=== PATIENT | female | born 1985 | race Caucasian/White ===

== ENCOUNTER → 2019-03-25 | Outpatient (CLI) | payer BC ==
--- NOTE | 2019-03-25 12:13 | MM ---
Reason for exam: screening (asymptomatic). Baseline mammogram. History: Family history of breast cancer in maternal grandmother and breast cancer in mother at age 37. Physical Findings: Nurse did not find any significant physical abnormalities on exam. MG 3D Screening Mammo W/Cad Bilateral CC and MLO view(s) were taken. The breast tissue is extremely dense which could obscure a lesion on mammography. No suspicious abnormality. Medial asymmetry at posterior depth on left 3D appears as fibroglandular tissue. ASSESSMENT: Negative, BI-RAD 1 RECOMMENDATION: Routine screening mammogram of both breasts in 1 year.
== END | disposition home or self-care (01) ==
LOC: RADMAMWWP 06:48 → MERGE 07:00
PROVIDERS: ATTEND Obstetrics & Gynecology
DX: Z12.31 Encounter for screening mammogram for malignant neoplasm of breast (principal); Z80.3 Family history of malignant neoplasm of breast
CPT/HCPCS: 77063; 77067

== ENCOUNTER 2019-12-16 12:29 | Outpatient (CLI) | payer BC ==
[2019-12-16 13:48] VITALS: BP 129/85; PULSE 93; RESP 16; TEMP 97.9
--- NOTE | 2020-01-08 12:37 | P.MSEPDOC ---
Presenting Problems - Arrival Data Date of Arrival on Unit: 12/16/19 Time of Arrival on Unit: 12:29 Mode of Transport: Ambulatory - Complaint OB-Reason for Admission/Chief Complaint: Possible Onset of Labor Comment: Matt since Medical History - Information : 3 Para: 2 Term: 1 : 1 Abortions: Spontaneous or Elective: 0 Number of Living Children: 2 - Gestational Age Gestational Age by BARRY (wks/days): 38 Weeks and 1 Days Review of Systems - Review of Systems Constitutional: No problems Breast: No problems ENT: No problems Cardiovascular: No problems Respiratory: No problems Gastrointestinal: No problems Genitourinary: No problems Musculoskeletal: No problems Neurological: No problems Skin: No problems Vital Signs - Temperature Temperature: 97.9 F Temperature Source: Temporal Artery Scan - Pulse Right Sitting Brachial Pulse Rate: 93 Pulse Assessment Method: Automatic Cuff - Respirations Respiratory Rate: 16 Oxygen Delivery Method: Room Air O2 Sat by Pulse Oximetry: 100 - Blood Pressure Right Arm Sitting Blood Pressure: 129/85 Blood Pressure Mean: 99 Blood Pressure Source: Automatic Cuff Medical Screen Scoring (Pre) - Cervical Exam Dilation: 1-3 cm = 1 Effacement: More than 50% = 2 Membranes: Intact - Uterine Contractions Frequency: > 5 minutes apart = 1 Duration: > 40 seconds = 2 Intensity: N/A - Maternal Vital Signs Maternal Temperature: N/A Maternal Blood Pressure: N/A Signs of Preeclampsia: N/A Maternal Respirations: N/A - Maternal Trauma Maternal Trauma: N/A - Assessment - Baby A Baseline FHR: 130 Heart Rate - NICHD Category: Category II (Indeterminate) = 3 Position: N/A Station: N/A - Total Score - Baby A Total Score - Baby A: 9 - Total Score - Baby B Total Score - Baby B: 6 - Total Score - Baby C Total Score - Baby C: 6 - Level of Risk - Baby A Level of Risk - Baby A: Medium (6-9) - Level of Risk - Baby B Level of Risk - Baby B: Medium (6-9) - Level of Risk - Baby C Level of Risk - Baby C: Medium (6-9) Physician Notification (Pre) - Physician Notified Physician Notified Date: 12/16/19 Physician Notified Time: 13:40 New Order Received: Yes - Notification Comment Comment: Juwan newton\Dr. Yi, , 38 06/21, contractions since 1030a, q3-5min, SVE 1.5/70/-2, no change since last exam in office and after 1 hr in triage, reactive NST, hx of fast delivery. Pt requesting d/c home after 1 hr in triage, lives 15 min from hosp. Orders rec'd to d/c pt from triage, to attempt latent labor interventions and return with increase in discomfort. Disposition - Disposition OB Disposition: Discharge to home, Written follow up instructions reviewed Discharge Date: 12/16/19 Discharge Time: 13:48 I agree with the RN Medical Screening Exam: Yes Risk & Benefit of care provided described in d/c instruction: Yes Diagnosis: FALSE LABOR AT OR AFTER 37 COMPLETED WEEKS OF GESTATION
== END 2019-12-16 13:48 | disposition home or self-care (01) ==
LOC: FBPOP 12:29
PROVIDERS: ATTEND Obstetrics & Gynecology Obstetrics
DX: O47.1 False labor at or after 37 completed weeks of gestation (principal); Z3A.38 38 weeks gestation of pregnancy
CPT/HCPCS: 59025; 99213

== ENCOUNTER 2019-12-20 07:45 | Outpatient (CLI) | payer BC ==
[2019-12-20 09:57] VITALS: BP 102/66; PULSE 98; RESP 16; TEMP 97.2
--- NOTE | 2020-01-11 07:59 | P.MSEPDOC ---
Presenting Problems - Arrival Data Date of Arrival on Unit: 12/20/19 Time of Arrival on Unit: 07:47 Mode of Transport: Ambulatory - Complaint OB-Reason for Admission/Chief Complaint: Possible Onset of Labor Comment: contractions starting this morning at 0445, Medical History - Information : 3 Para: 2 Term: 1 : 1 Abortions: Spontaneous or Elective: 0 Number of Living Children: 2 - Gestational Age Gestational Age by BARRY (wks/days): 38 Weeks and 5 Days Review of Systems - Review of Systems Constitutional: No problems Breast: No problems ENT: No problems Cardiovascular: No problems Respiratory: No problems Gastrointestinal: No problems Genitourinary: No problems Musculoskeletal: No problems Neurological: No problems Skin: No problems Vital Signs - Temperature Temperature: 97.2 F - Pulse Pulse Oximetery Pulse Rate: 98 Pulse Assessment Method: Pulse Oximetry - Respirations Respiratory Rate: 16 Oxygen Delivery Method: Room Air - Blood Pressure Right Arm Blood Pressure: 102/66 Blood Pressure Mean: 78 Blood Pressure Source: Automatic Cuff Medical Screen Scoring (Pre) - Cervical Exam Dilation: 1-3 cm = 1 Effacement: More than 50% = 2 Membranes: Intact - Uterine Contractions Frequency: > 5 minutes apart = 1 Duration: N/A Intensity: N/A - Maternal Vital Signs Maternal Temperature: N/A Maternal Blood Pressure: N/A Signs of Preeclampsia: N/A Maternal Respirations: N/A - Maternal Trauma Maternal Trauma: N/A - Assessment - Baby A Baseline FHR: 135 Heart Rate - NICHD Category: Category I (Normal) = 0 - Total Score - Baby A Total Score - Baby A: 4 - Total Score - Baby B Total Score - Baby B: 4 - Total Score - Baby C Total Score - Baby C: 4 - Level of Risk - Baby A Level of Risk - Baby A: Low (0-5) - Level of Risk - Baby B Level of Risk - Baby B: Low (0-5) - Level of Risk - Baby C Level of Risk - Baby C: Low (0-5) Physician Notification (Pre) - Physician Notified Physician Notified Date: 12/20/19 Physician Notified Time: 09:25 New Order Received: Yes - Notification Comment Comment: reported pt visit to triage, contractions decreased in intensity and frequency after admission. reactive nst, postitive fm, no cervical change fom first to second check, one hour apart. pt has appointment with dr olsen tomorrow at 0800. orders [address] dr gutierrez to dc pt home with instruction Disposition - Disposition OB Disposition: Physician follow up in office, Discharge to home Discharge Date: 12/20/19 Discharge Time: 09:38 I agree with the RN Medical Screening Exam: Yes Risk & Benefit of care provided described in d/c instruction: Yes Diagnosis: FALSE LABOR AT OR AFTER 37 COMPLETED WEEKS OF GESTATION
== END 2019-12-20 09:38 | disposition home or self-care (01) ==
LOC: FBPOP 07:45
PROVIDERS: ATTEND Obstetrics & Gynecology
DX: O47.1 False labor at or after 37 completed weeks of gestation (principal); Z3A.38 38 weeks gestation of pregnancy
CPT/HCPCS: 59025; 99213

== ENCOUNTER 2019-12-20 14:42 | Inpatient (IN) | payer BC ==
[2019-12-20] MEDS ORDERED: OXYTOCIN 10 UNIT/ML 1 ML VIAL IM PRN (15:16)
[2019-12-20] MEDS ORDERED: LIDOCAINE 0.5% (PF) 5 MG/ML (50 ML SDV) SQ PRN (15:16)
[2019-12-20] MEDS ORDERED: METHYLERGONOVINE 0.2 MG/ML 1 ML AMP IM PRN (15:16)
[2019-12-20] MEDS ORDERED: TERBUTALINE 1 MG/ML VIAL SQ PRN (15:16)
[2019-12-20] MEDS ORDERED: CARBOPROST TROMETHAMINE 250 MCG/ML 1 ML AMP IM PRN (15:16)
[2019-12-20] MEDS: LACTATED RINGERS 1,000 ML IV SCH (15:20)
[2019-12-20 15:31] LABS: Basophils % (A) 0 %; Eosinophils # (A) 0.2 k/uL (0-0.7); Eosinophils % (A) 2 %; Lymphocytes # (A) 2.2 k/uL (1.0-4.8); Lymphocytes % (A) 22 %; MCH 29.8 pg (25.0-35.0); MCHC 33.3 g/dL (31.0-37.0); MCV 89.4 fL (80.0-100.0); Mean Platelet Volume 7.5; Monocytes # (A) 0.4 k/uL (0-1.0); Monocytes % (A) 4 %; Neutrophils # (A) 6.9 k/uL (1.3-7.7); Neutrophils % (A) 70 %; Platelet Count 256 k/uL (150-450); RBC 4.36 m/uL (3.80-5.40); RDW 12.8 % (11.5-15.5); WBC 9.9 k/uL (3.8-10.6)
--- NOTE | 2019-12-20 15:44 | P.HPOB ---
History of Present Illness H&P Date: 12/20/19 Chief Complaint: strong regular contractions This is a 34-year-old white female 3 para 2002 EDC 12/29/2019 at 38-5/7 weeks' gestation. Patient presents today with strong regular uterine contractions. Fetus is been active throughout the . She denies vagina l bleeding or fluid leakage. history is significant for blood type O positive, rubella status immune. Pap smear, urine culture, HIV, hepatitis B surface antigen, group B strep cultures all negative. One-hour Glucola 95. Past medical history is essentially negative. Past surgical history wisdom teeth extracted. Current medications vitamins daily and baby aspirin daily for history of abruption with her previous . ALLERGIES none known. Reproductive history significant for 2 vaginal deliveries in the past, both female infants. Family history significant for atrial fibrillation, diabetes, breast cancer. Social history patient is , her 's name is Phong. She denies alcohol or drug use. On exam this is a pleasant white female who is 5 foot 8 inches, 145 pounds, blood pressure 126/81, pulse 112. The general physical exam is within normal limits. The cervix is 9 cm dilated, 100% effaced, -1 station, vertex presentation. Artificial amniorrhexis reveals clear fluid. heart rate is consistent with reactive NST. Impression: 38-5/7 weeks intrauterine , active spontaneous labor. All signs reassuring. Plan: Patient is declining option for epidural. Continue close maternal and surveillance. Anticipate normal spontaneous vaginal delivery. Review of Systems Constitutional: Reports as per HPI Past Medical History Past Medical History: No Reported History Additional Past Medical History / Comment(s): placental abruption 2016 at 35 wks History of Any Multi-Drug Resistant Organisms: None Reported Past Surgical History: No Surgical Hx Reported Additional Past Surgical History / Comment(s): oral surgery Past Anesthesia/Blood Transfusion Reactions: No Reported Reaction Smoking Status: Never smoker - Past Family History Mother Family Medical History: Cancer Medications and Allergies Home Medications Medication Instructions Recorded Confirmed Type Aspirin 81 mg PO DAILY 12/16/19 12/20/19 History Iron 18 mg PO DAILY 12/16/19 12/20/19 History Pnv No.95/Ferrous Fum/Folic AC 1 each PO DAILY 12/16/19 12/20/19 History [ Multivitamin Tablet] Allergies Allergy/AdvReac Type Severity Reaction Status Date / Time No Known Allergies Allergy Verified 12/20/19 15:16 Exam Intake and Output 12/20/19 12/20/19 12/20/19 06:59 14:59 22:59 Other: Weight 65.771 kg See dictation under HPI please Results Result Diagrams: 12/20/19 15:20 Assessment and Plan Assessment: 38-5/7 weeks intrauterine , active spontaneous labor. All signs reassuring. Plan: Continue close maternal and surveillance. Anticipate normal spontaneous vaginal delivery. Time with Patient: Less than 30
[2019-12-20] MEDS ORDERED: ZOLPIDEM 5 MG TAB PO PRN (16:06)
[2019-12-20] MEDS ORDERED: SIMETHICONE 80 MG CHEWABLE PO PRN (16:06)
[2019-12-20] MEDS ORDERED: HYDROCORTISONE 2.5% RECTAL CREAM 30 GM TUBE RECTAL PRN (16:06)
[2019-12-20] MEDS ORDERED: diphenhydrAMINE 25 MG CAP PO PRN (16:06)
[2019-12-20] MEDS ORDERED: diphenhydrAMINE 50 MG CAP PO PRN (16:06)
[2019-12-20] MEDS ORDERED: BENZOCAINE/MENTHOL SPRAY 1 GM/SPRAY AEROSOL TOPICAL PRN (16:06)
[2019-12-20] MEDS ORDERED: LANOLIN CREAM 5 GM TUBE TOPICAL PRN (16:06)
[2019-12-20] MEDS ORDERED: diphenhydrAMINE 50 MG/ML 1 ML VIAL IVP PRN ×2 (16:06)
[2019-12-20] MEDS ORDERED: WITCH HAZEL 1 EACH MED..PAD TOPICAL PRN (16:06)
--- NOTE | 2019-12-20 16:06 | P.PROBDLV ---
Vaginal Delivery Note - . Vaginal Delivery Note: This is a 34-year-old white female 3 para 2002 EDC 12/29/2019 at 38-5/7 weeks' gestation. Patient presented with strong regular uterine contractions from home. She denied fluid leakage or vaginal bleeding. Fetus is been active throughout the . Please see dictated history and physical for details. Artificial amniorrhexis revealed clear fluid. Patient progressed very rapidly through the first stage of labor and became completely dilated at 1546 hours. Perineal body was prepped and draped in usual sterile fashion. With excellent maternal expulsive efforts the infant's head delivered occiput anterior and restituted accordingly. There was no nuchal cord noted. The left or anterior shoulder was gently delivered from underneath the pubic symphysis at which time the oropharynx, nasopharynx, and external nares were all bulb suctioned on the perineal body. Patient was officially delivered of a liveborn female at 1551 hours. Umbilical cord was doubly clamped and ligated, she was handed to waiting nurses for evaluation where scores of 9 and 9 at one and 5 minutes respectively were given. The placenta delivered spontaneously, it was inspected and noted to be intact with trivascular cord at 1554 hours. At this time the perineal body was redraped. Inspection of the cervix, vagina, perineum, periurethral, and perirectal areas revealed a small first-degree perineal laceration that was easily repaired with 4-0 Monocryl suture. The fundus is firm and in the midline, symmetric and 18 week size upon completion of delivery. All sponge needle and enhancement counts are correct. weighs 8 lbs. 4 oz. or 3760 g. Family is allowed to begin the bonding experience in the LDR.
[2019-12-20] MEDS ORDERED: OXYTOCIN 20 UNITS/1000 ML NS 1,000 ML IV SCH (16:15)
[2019-12-20 17:19] VITALS: RESP 16
[2019-12-20] MEDS: IBUPROFEN 600 MG TAB PO PRN (18:19)
[2019-12-20] MEDS: ACETAMINOPHEN TAB 325 MG TAB PO PRN (20:27)
[2019-12-20] MEDS: SENNOSIDES-DOCUSATE SODIUM 1 EACH TAB PO SCH (20:30)
[2019-12-21] MEDS: IBUPROFEN 600 MG TAB PO PRN (00:27)
[2019-12-21] MEDS: LACTATED RINGERS 1,000 ML IV SCH (01:23)
[2019-12-21] MEDS: ACETAMINOPHEN TAB 325 MG TAB PO PRN (05:07)
[2019-12-21 06:03] LABS: Basophils % (A) 0 %; Eosinophils # (A) 0.1 k/uL (0-0.7); Eosinophils % (A) 1 %; HCT 34.4 % (34.0-46.0); HGB 11.9 gm/dL (11.4-16.0); Lymphocytes # (A) 1.5 k/uL (1.0-4.8); Lymphocytes % (A) 18 %; MCH 31.7 pg (25.0-35.0); MCHC 34.5 g/dL (31.0-37.0); MCV 91.8 fL (80.0-100.0); Mean Platelet Volume 7.9; Monocytes # (A) 0.4 k/uL (0-1.0); Monocytes % (A) 5 %; Neutrophils % (A) 74 %; Platelet Count 216 k/uL (150-450); RBC 3.74 m/uL (3.80-5.40); RDW 12.9 % (11.5-15.5); WBC 8.1 k/uL (3.8-10.6)
--- NOTE | 2019-12-21 07:44 | P.DS ---
Providers Date of admission: 12/20/19 15:05 Expected date of discharge: 12/21/19 Attending physician: Shobha Child Primary care physician: Stated None Hospital Course: This is a 34-year-old female 3 para 2001 EDC 12/29/2019 at 38-5/7 weeks' gestation. Patient presented from home in active spontaneous labor. Group B strep cultures were negative, blood type O positive, rubella status immune. Please see dictated history and physical for details. Artificial amniorrhexis revealed clear fluid. She went on to quickly deliver a liveborn female infant with scores of 9 and 9 at one and 5 minutes respectively. weighed 8 lbs. 4 oz. or 3760 g. There was a small first- degree perineal laceration easily repaired. Estimated blood loss 200 mL's. Please see dictated delivery note for details. This morning the patient is doing well. She is voiding, ambulating and passing flatus without difficulty. Vital signs are stable and she is afebrile. Fundus is firm and in the midline, symmetric and 18 week size. Extremities are negative for edema. Patient is judged to be in excellent condition for discharge home. She will follow-up with me in the office in 6 weeks. I have reminded her no intercourse, tampons or douching. We have discussed options for contraception and we will discern this more thoroughly in the office. Continue taking vitamin daily. Use Advil, Motrin or Aleve as needed for pain. Call with any fevers shakes or chills, foul smelling or copious lochia, with the passage of large blood clots, with any pain not alleviated by [id number] products, or indeed with any concerns. Patient Condition at Discharge: Good Plan - Discharge Summary Discharge Rx Participant: No New Discharge Prescriptions: No Action Aspirin 81 mg PO DAILY Pnv No.95/Ferrous Fum/Folic AC [ Multivitamin Tablet] 1 each PO DAILY Iron 18 mg PO DAILY Discharge Medication List Aspirin 81 mg PO DAILY 12/16/19 [History] Iron 18 mg PO DAILY 12/16/19 [History] Pnv No.95/Ferrous Fum/Folic AC [ Multivitamin Tablet] 1 each PO DAILY 12/16/19 [History] Follow up Appointment(s)/Referral(s): Shobha Child MD [STAFF PHYSICIAN] - 6 Weeks Discharge Disposition: HOME SELF-CARE
[2019-12-21] MEDS: SENNOSIDES-DOCUSATE SODIUM 1 EACH TAB PO SCH (07:56)
[2019-12-23 08:57] VITALS: BP 118/70; PULSE 66; TEMP 97.9
== END 2019-12-21 17:35 | disposition home or self-care (01) | DRG 807 ==
LOC: FBPOP 14:42 → 4FBP 15:05
PROVIDERS: ADMIT Obstetrics & Gynecology; ATTEND Obstetrics & Gynecology
PROC: 0HQ9XZZ Repair Perineum Skin, External Approach (ICD-10-PCS; principal; 2019-12-20)
PROC: 10E0XZZ Delivery of Products of Conception, External Approach (ICD-10-PCS; principal; 2019-12-20)
DX: O70.0 First degree perineal laceration during delivery (principal); Z37.0 Single live birth; Z3A.38 38 weeks gestation of pregnancy; Z79.82 Long term (current) use of aspirin; Z80.3 Family history of malignant neoplasm of breast; Z83.3 Family history of diabetes mellitus; Z82.49 Family history of ischemic heart disease and other diseases of the circulatory system
CPT/HCPCS: 85025; 86850; 86900; 86901

== ENCOUNTER → 2021-05-29 | Outpatient (CLI) | payer BC ==
[2021-05-29 09:49] LABS: Basophils % (A) 0 %; Eosinophils # (A) 0.1 k/uL (0-0.7); Eosinophils % (A) 1 %; HCT 39.8 % (34.0-46.0); HGB 13.3 gm/dL (11.4-16.0); Lymphocytes # (A) 1.5 k/uL (1.0-4.8); Lymphocytes % (A) 18 %; MCH 29.6 pg (25.0-35.0); MCHC 33.5 g/dL (31.0-37.0); MCV 88.4 fL (80.0-100.0); Mean Platelet Volume 7.3; Monocytes # (A) 0.4 k/uL (0-1.0); Monocytes % (A) 5 %; Neutrophils # (A) 6.4 k/uL (1.3-7.7); Neutrophils % (A) 75 %; Platelet Count 300 k/uL (150-450); WBC 8.5 k/uL (3.8-10.6)
== END | disposition home or self-care (01) ==
LOC: LABPAT 09:05
PROVIDERS: ATTEND Obstetrics & Gynecology
DX: Z01.812 Encounter for preprocedural laboratory examination (principal); O02.1 Missed abortion; Z3A.00 Weeks of gestation of pregnancy not specified
CPT/HCPCS: 85025

== ENCOUNTER 2022-05-31 01:35 | Outpatient (CLI) | payer BC ==
[2022-05-31 03:03] VITALS: BP 130/78; PULSE 118; RESP 16; TEMP 98.1
--- NOTE | 2022-05-31 13:37 | P.MSEPDOC ---
Presenting Problems - Arrival Data Date of Arrival on Unit: 05/31/22 Time of Arrival on Unit: 01:35 Mode of Transport: Ambulatory - Complaint OB-Reason for Admission/Chief Complaint: Rule Out SROM Comment: pt. presents to triage due to Possible SROM, amnisure negative Medical History - Information : 4 Para: 3 Term: 2 : 1 Abortions: Spontaneous or Elective: 0 Number of Living Children: 3 - Gestational Age Gestational Age by BARRY (wks/days): 37 Weeks and 2 Days - History Complications: Prior Review of Systems - Review of Systems Constitutional: No problems Breast: No problems ENT: No problems Cardiovascular: No problems Respiratory: No problems Gastrointestinal: No problems Genitourinary: No problems Musculoskeletal: No problems Neurological: No problems Skin: No problems Vital Signs - Temperature Temperature: 98.1 F Temperature Source: Temporal Artery Scan - Pulse Pulse Oximetery Pulse Rate: 118 Pulse Assessment Method: Automatic Cuff - Respirations Respiratory Rate: 16 Oxygen Delivery Method: Room Air O2 Sat by Pulse Oximetry: 100 - Blood Pressure Right Arm Blood Pressure: 130/78 Blood Pressure Mean: 95 Blood Pressure Source: Automatic Cuff Medical Screen Scoring - Cervical Exam Dilation (cm): 2 Effacement (%): 80 Station: -2 Membranes: Intact - Uterine Contractions Frequency From (mins): 2 Frequency To (mins): 8 Duration From (seconds): 50 Duration To (seconds): 120 Intensity: Mild Resting: Soft to palpation - Assessment - Baby A Baseline FHR: 120 Heart Rate - NICHD Category: Category I (Normal) NST: Reactive Physician Notification - Physician Notified Physician Notified Date: 05/31/22 Physician Notified Time: 02:45 Physician: Sandra Ren Order Received: Yes - Notification Comment Comment: Orders to discharge pt. home Maternal Triage Index - Maternal Triage Index Presenting for scheduled procedure w/no complaint: No - Stat/Priority 1 Stat Priority 1: No - Urgent/Priority 2 Urgent Priority 2: No - Prompt/Priority 3 Prompt Priority 3: Yes Criteria Met for Priority 3: possible SROM, amnisure negative and no cervical change after 1 hour, pt. comfortable Disposition - Disposition OB Disposition: Discharge to home Discharge Date: 05/31/22 Discharge Time: 02:52 I agree with the RN Medical Screening Exam: Yes Physician's MSE Comment: I have neither seen nor examined the patient Case reviewed; plan agreed upon as documented in EMR&OBIX.: Yes Diagnosis: RELATED CONDITIONS, UNSPECIFIED, THIRD TRIMESTER
== END 2022-05-31 02:52 | disposition home or self-care (01) ==
LOC: FBPOP 01:35
PROVIDERS: ATTEND Obstetrics & Gynecology
DX: Z03.71 Encounter for suspected problem with amniotic cavity and membrane ruled out (principal); Z3A.37 37 weeks gestation of pregnancy
CPT/HCPCS: 59025; 84112; 99213

== ENCOUNTER 2022-06-04 18:25 | Inpatient (IN) | payer BC ==
[2022-06-04] MEDS ORDERED: TERBUTALINE 1 MG/ML VIAL SQ PRN (18:45)
[2022-06-04] MEDS ORDERED: LIDOCAINE 0.5% (PF) 5 MG/ML (50 ML SDV) SQ PRN (18:45)
[2022-06-04] MEDS ORDERED: AMPICILLIN 2,000 MG in SODIUM CHLORIDE 0.9% 100 ML IVPB STA (18:45)
[2022-06-04] MEDS: LACTATED RINGERS 1,000 ML IV SCH (19:05)
[2022-06-04 19:29] LABS: Basophils # (A) 0.1 k/uL (0-0.2); Basophils % (A) 1 %; Eosinophils # (A) 0.1 k/uL (0-0.7); Eosinophils % (A) 1 %; HCT 37.6 % (34.0-46.0); HGB 13.5 gm/dL (11.4-16.0); Lymphocytes % (A) 21 %; MCH 30.8 pg (25.0-35.0); MCHC 35.9 g/dL (31.0-37.0); MCV 85.7 fL (80.0-100.0); Mean Platelet Volume 8.8; Monocytes # (A) 0.4 k/uL (0-1.0); Monocytes % (A) 4 %; Neutrophils # (A) 6.9 k/uL (1.3-7.7); Neutrophils % (A) 72 %; Platelet Count 289 k/uL (150-450); RBC 4.39 m/uL (3.80-5.40); RDW 12.9 % (11.5-15.5); WBC 9.6 k/uL (3.8-10.6)
--- NOTE | 2022-06-04 19:31 | P.HPOB ---
History of Present Illness H&P Date: 06/04/22 Chief Complaint: IUP @ 37 weeks, Active labor 37-year-old 003 at 37 6/7 weeks of that presents with complaints of regular painful contractions. Patient states she's been carrie for "days" and today they became more regular. Patient presented to labor and delivery and was noted to be 5 cm dilated with a bulging bag of water. Patient has been receiving routine care which has been essentially uncomplicated. On bloodwork this patient is a blood type of O+, rubella status immune, hepatitis B surface antigen negative, HIV negative, RPR is nonreactive, group beta strep is unknown as it was just done today. Review of Systems Constitutional: Denies chills, Denies fatigue, Denies fever Ears, nose, mouth and throat: Denies headache Cardiovascular: Reports leg edema Gastrointestinal: Denies constipation, Denies diarrhea, Denies nausea, Denies vomiting Genitourinary: Reports Past Medical History Past Medical History: No Reported History Additional Past Medical History / Comment(s): placental abruption 2016 at 35 wks History of Any Multi-Drug Resistant Organisms: None Reported Past Surgical History: No Surgical Hx Reported Additional Past Surgical History / Comment(s): oral surgery Past Anesthesia/Blood Transfusion Reactions: No Reported Reaction Past Psychological History: No Psychological Hx Reported Smoking Status: Never smoker Past Alcohol Use History: None Reported Past Drug Use History: None Reported - Past Family History Mother Family Medical History: Cancer Father Family Medical History: Cancer Medications and Allergies Home Medications Medication Instructions Recorded Confirmed Type No Known Home Medications 05/29/21 05/29/21 History Allergies Allergy/AdvReac Type Severity Reaction Status Date / Time No Known Allergies Allergy Verified 06/04/22 18:38 Exam Osteopathic Statement: *. No significant issues noted on an osteopathic structural exam other than those noted in the History and Physical/Consult. 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 heart tones are noted to be category 1 and she is carrie every 3 minutes. Assessment and Plan (1) Term Current Visit: Yes Status: Acute Code(s): Z34.90 - ENCNTR FOR SUPRVSN OF NORMAL , UNSP, UNSP TRIMESTER SNOMED Code(s): 06533589 (2) Active labor Current Visit: Yes Status: Acute Code(s): ZTB7027 - SNOMED Code(s): 045776128 Plan: 37-year-old at 37-6/7 weeks that presents with regular painful contraction s deemed to be in active labor. GBS unknown therefore IV antibiotics are begun. Amniotomy is performed and clear fluid was obtained. Patient declines analgesia. Anticipate spontaneous vaginal delivery.
[2022-06-04] MEDS ORDERED: diphenhydrAMINE 25 MG CAP PO PRN (21:17)
[2022-06-04] MEDS ORDERED: HYDROCORTISONE 2.5% RECTAL CREAM 30 GM TUBE RECTAL PRN (21:17)
[2022-06-04] MEDS ORDERED: SIMETHICONE 80 MG CHEWABLE PO PRN (21:17)
[2022-06-04] MEDS ORDERED: diphenhydrAMINE 50 MG/ML 1 ML VIAL IVP PRN ×2 (21:17)
[2022-06-04] MEDS ORDERED: diphenhydrAMINE 50 MG CAP PO PRN (21:17)
[2022-06-04] MEDS ORDERED: LANOLIN CREAM 5 GM TUBE TOPICAL PRN (21:17)
[2022-06-04] MEDS ORDERED: ZOLPIDEM 5 MG TAB PO PRN (21:17)
[2022-06-04] MEDS ORDERED: BENZOCAINE/MENTHOL SPRAY 1 GM/SPRAY AEROSOL TOPICAL PRN (21:17)
--- NOTE | 2022-06-04 21:21 | P.PROBDLV ---
Vaginal Delivery Note - . Vaginal Delivery Note: Findings; viable female delivered at 2106, weight of 7 lbs. 8 oz., Apgars of 8 and 9 at one and 5 minutes respectively. This is a 37-year-old 003 that presented to labor and delivery at 37-6/7 weeks with complaints of regular painful contractions. Patient was noted to be 5 cm upon admission. Patient was admitted to labor and delivery. Group beta strep cultures were unknown therefore IV antibiotics were begun. Patient underwent amniotomy and clear fluid was obtained. Patient made progress were complete began pushing. Patient had a normal spontaneous vaginal delivery of a viable female infant at 2106, weight of 7 lbs. 8 oz., Apgars of 8 and 9 at one and 5 minutes respectively. A loose nuchal cord was delivered through. No vaginal lacerations were appreciated. After two-minute delayed the umbilical cord was doubly clamped and cut and the placenta was three-vessel cord being noted. Estimated blood loss 100 mL Patient and infant tolerated delivery well and are resting comfortably
[2022-06-04] MEDS ORDERED: OXYTOCIN 30 UNITS/500 ML NS 30 UNIT in SALINE 1 500ML.BAG IV SCH (21:30)
[2022-06-04] MEDS: IBUPROFEN 600 MG TAB PO SCH (21:43)
[2022-06-04] MEDS ORDERED: AMPICILLIN 1,000 MG in SODIUM CHLORIDE 0.9% 50 ML IVPB SCH (23:00)
[2022-06-05] MEDS: ACETAMINOPHEN TAB 325 MG TAB PO PRN ×2 (00:21→09:44)
[2022-06-05] MEDS: IBUPROFEN 600 MG TAB PO SCH ×4 (03:25→21:46)
--- NOTE | 2022-06-05 08:51 | P.PNOBGVD ---
Subjective - Subjective Principal diagnosis: day 1 status post normal spent taste vaginal delivery Interval history: Patient is doing well . She is ambulating and voiding without difficulty. She is tolerating a regular diet without nausea or vomiting. Her lochia is moderate. She is breast-feeding without difficulty. Her was taken to the nursery for evaluation overnight. Patient reports: Reports appetite normal, Reports voiding normally, Reports pain well controlled, Reports ambulating normally : doing well Objective - Latest Vital Signs Latest vital signs: Vital Signs Temp Pulse Resp BP Pulse Ox 06/05/22 00:00 82 18 119/74 99 06/04/22 22:40 78 18 121/71 06/04/22 22:37 80 120/73 06/04/22 22:10 96 18 131/82 06/04/22 21:55 80 18 127/73 06/04/22 21:40 78 18 127/71 06/04/22 21:25 89 18 125/69 06/04/22 21:10 97.5 F L 86 18 125/71 06/04/22 19:03 118 H 18 127/77 06/04/22 18:37 98.1 F 118 H 18 127/77 100 Intake and Output 06/04/22 06/05/22 06/05/22 22:59 06:59 14:59 Output Total 256 Balance -256 Output: Output, Quantitative 256 Blood Loss Other: # Voids 1 Weight 65.771 kg - Exam Extremities: Present: normal, edema Abdomen: Present: normal appearance Uterus: Present: normal, firm Assessment and Plan (1) Term Current Visit: Yes Status: Acute Code(s): Z34.90 - ENCNTR FOR SUPRVSN OF NORMAL , UNSP, UNSP TRIMESTER SNOMED Code(s): 29945127 (2) Active labor Current Visit: Yes Status: Acute Code(s): BSO9936 - SNOMED Code(s): 088020694 (3) Status post vaginal delivery Current Visit: Yes Status: Acute Code(s): [id number] - SNOMED Code(s): 401314341 Plan: 37-year-old G4 now P4 status post normal spontaneous vaginal delivery. Patient is doing well . remains in the nursery for evaluation. Continue routine care and anticipate discharge home tomorrow.
[2022-06-05 09:40] VITALS: RESP 16
[2022-06-05] MEDS: SENNOSIDES-DOCUSATE SODIUM 1 EACH TAB PO SCH ×2 (09:43→21:46)
[2022-06-06] MEDS: IBUPROFEN 600 MG TAB PO SCH ×3 (07:21→14:59)
[2022-06-06] MEDS: LACTATED RINGERS 1,000 ML IV SCH (07:21)
[2022-06-06 07:23] VITALS: BP 123/80; PULSE 75; TEMP 97.9
[2022-06-06] MEDS: SENNOSIDES-DOCUSATE SODIUM 1 EACH TAB PO SCH (09:26)
--- NOTE | 2022-06-06 09:52 | P.DS ---
Providers Date of admission: 06/04/22 18:52 Expected date of discharge: 06/06/22 Attending physician: Shobha Child Primary care physician: Stated None - Discharge Diagnosis(es) (1) Term Current Visit: Yes Status: Acute (2) Active labor Current Visit: Yes Status: Acute (3) Status post vaginal delivery Current Visit: Yes Status: Acute Hospital Course: This is a 37-year-old 4 para 3 that presented to labor and delivery at 37-6/7 weeks with complaints of regular painful contractions. Patient was noted to be 5 cm. Patient was admitted to labor and delivery. Group beta strep cultures noted to be pending therefore IV antibiotics were begun. Patient did undergo amniotomy clear fluid was obtained. Patient met progress towards complete and began pushing. Patient had a normal spontaneous vaginal delivery of a viable female infant at 2106, weight of 7 lbs. 8 oz. No vaginal lacerations were appreciated during delivery. Patient's course is been uneventful. On this day #2 she is ambulating and voiding without difficulty. States her pain is well-controlled. She denies concerns. Her does remain in the nursery on IV antibiotics. Plan for discharge for her tomorrow morning Plan - Discharge Summary New Discharge Prescriptions: No Action No Known Home Medications Discharge Medication List No Known Home Medications 05/29/21 [History] Follow up Appointment(s)/Referral(s): Shobha Child MD [STAFF PHYSICIAN] - 6 Weeks Patient Instructions/Handouts: Vaginal Delivery (DC), Vaginal Delivery (GEN) Discharge Disposition: HOME SELF-CARE
== END 2022-06-06 15:00 | disposition home or self-care (01) | DRG 807 ==
LOC: FBPOP 18:25 → 4FBP 18:52
PROVIDERS: ADMIT Obstetrics & Gynecology Obstetrics; ATTEND Obstetrics & Gynecology
PROC: 10E0XZZ Delivery of Products of Conception, External Approach (ICD-10-PCS; principal; 2022-06-04)
PROC: 10907ZC Drainage of Amniotic Fluid, Therapeutic from Products of Conception, Via Natural or Artificial Opening (ICD-10-PCS; principal; 2022-06-04)
DX: O69.81X0 Labor and delivery complicated by cord around neck, without compression, not applicable or unspecified (principal); Z37.0 Single live birth; Z3A.37 37 weeks gestation of pregnancy; Z28.310 Unvaccinated for COVID-19
CPT/HCPCS: 59025; 85025; 86850; 86900; 86901; 99213

== ENCOUNTER 2022-06-29 07:36 | Emergency (ER) | payer BC ==
[2022-06-29 07:41] VITALS: TEMP 98.5
[2022-06-29] MEDS ORDERED: SODIUM CHLORIDE 0.9% 1,000 ML IV STA (08:00)
[2022-06-29] MEDS ORDERED: KETOROLAC 15 MG/ML 1 ML VIAL IVP STA (08:00)
[2022-06-29] MEDS ORDERED: ONDANSETRON 4 MG/2 ML VIAL IVP STA (08:00)
--- NOTE | 2022-06-29 08:19 | ED ---
General Adult HPI - General Chief complaint: Abdominal Pain Stated complaint: Fever,Abd Pain Time Seen by Provider: 06/29/22 07:50 Source: patient, RN notes reviewed, old records reviewed Mode of arrival: ambulatory Limitations: no limitations - History of Present Illness Initial comments: Patient is a 37-year-old female who is 3 weeks following an uncomplicated presents emergency Department complaining of possible fever as well as abdominal pain for the last week. Patient states she took a fever last night via ear thermometer and it was elevated to 102F. She did do a virtual visit prior to finding out about the fever with a physician and was prescribed an antibiotic for possible UTI. When she found that she had a fever, that coupled with the abdominal pain prompted her to come to the emergency department this morning for evaluation. She denies any chest pain or shortness of breath. Denies any cough. Nurses mild nausea but no episodes of emesis. Denies diarrhea. Denies any hematuria or dysuria. Denies any vaginal discharge, but does endorse some spotting which is improving since having her spontaneous vaginal delivery 3 weeks ago. She states that the was uncomplicated, and she was discharged home with her healthy baby girl 1-2 days after delivery.Denies foul-smelling discharge. Overall, patient's vaginal bleeding has improved since delivery. She has had a normal progression since but then started noticing this right sided abdominal pain that has been ongoing for the last week. Has progressed to some right sided back pain as well. Describes it as sharp, achy sensation. Occasionally has a headache with it as well. Denies any weakness or numbness. States it seems to radiate from the right flank low but down towards her groin and then up to her right upper back. Has no other acute complaints at this time. Further evaluation over concern for abdominal pain.No history of abdominal surgery.Patient is afebrile here in the department via oral thermometer. Last took Tylenol last night at 10 PM. Is currently approximately 8 AM.Patient did have a placental abruption with her pr ior in 2016. - Related Data Home Medications Medication Instructions Recorded Confirmed No Known Home Medications 05/29/21 05/29/21 Allergies Allergy/AdvReac Type Severity Reaction Status Date / Time No Known Allergies Allergy Verified 06/29/22 07:40 Review of Systems ROS Statement: Those systems with pertinent positive or pertinent negative responses have been documented in the HPI. Review of Systems: CONST: Denies fever EYES: Denies blurry vision ENT: Denies nasal congestion C/V: Denies Chest pain RESP: Denies shortness of breath GI: Endorses abdominal pain : Denies dysuria SKIN: Denies rash. MSK: Denies joint pain. NEURO: Denies headache ROS Other: All systems not noted in ROS Statement are negative. Past Medical History Past Medical History: No Reported History Additional Past Medical History / Comment(s): placental abruption 2016 at 35 wks History of Any Multi-Drug Resistant Organisms: None Reported Past Surgical History: No Surgical Hx Reported Additional Past Surgical History / Comment(s): oral surgery Past Anesthesia/Blood Transfusion Reactions: No Reported Reaction Past Psychological History: No Psychological Hx Reported Smoking Status: Never smoker Past Alcohol Use History: None Reported Past Drug Use History: None Reported - Past Family History Mother Family Medical History: Cancer Father Family Medical History: Cancer General Exam - General Exam Comments Initial Comments: General: Appears in mild distress secondary to pain.Patient is afebrile. Oral thermometer. HEAD: Normal with no signs of head trauma. EYES: PERRLA, EOMI, conjunctiva normal, no discharge. ENT: Hearing grossly intact, normal oropharynx. RESPIRATORY: Clear breath sounds bilaterally. No wheezes, rales, or rhonchi. C/V: Regular rate and rhythm. S1 and S2 auscultated, no edema, peripheral pulses 2+ and intact throughout ABD: Abdomen soft, nondistended. Tender to palpation in the right flank, right upper quadrant. No guarding. No rebound tenderness. No peritoneal signs. CVA tenderness to percussion on the right. Minimal right lower quadrant tenderness to palpation, primarily seems to be in the right upper quadrant, right flank, right back. EXT: Normal range of motion, no obvious deformity SKIN: No rashes or lesions observed on exposed skin. NEURO: Alert and oriented 4. No focal deficits Limitations: no limitations Course Vital Signs 06/29/22 06/29/22 06/29/22 07:38 09:35 10:28 Temperature 98.5 F Pulse Rate 111 H 92 92 Respiratory 20 18 18 Rate Blood Pressure 133/90 132/76 134/81 O2 Sat by Pulse 97 97 96 Oximetry Medical Decision Making - Medical Decision Making Based on the patient's presentation and physical exam, I'm concerned for intra- abdominal pathology for her current symptoms. This includes concern for kidney stone versus, nephritis versus UTI versus gallbladder pathology versus possible ovarian torsion. We will start with abdominal x-ray as well as ultrasounds of the kidneys, ovaries, bladder, gallbladder. We will obtain abdominal laboratory studies. She'll be given IV Toradol as well as IV fluids and antibiotics with Zofran. She was in agreement this plan. Vital signs within acceptable limits except for mild tachycardia which I treated to her pain as well as her anxiety regarding the situation. She was in agreement this plan. We will continue to monitor her. I low suspicion for complications that she has been progressing well, with no vaginal discharge and improving bleeding which is typical for her course of vaginal delivery.I did discuss with the patient and she is afebrile currently and that the ear thermometers are not very accurate. She expressed understanding. She does not have any recent antipyretics that would treat fever, having last used antipyretics at 10 PM last night. Patient's laboratory studies were relatively unremarkable except findings concerning for possible urinary tract infection as she has large amount of leukocyte esterase and a large amount of WBCs. Is not a contaminated catch. Patient is already on antibiotics for this. Patient's KUB x-ray showed no acute process. Ultrasounds of the gallbladder, kidneys, bladder, ovaries and uterus revealed no acute gallbladder or renal/bladder pathology. No evidence for hydronephrosis. Patient has no evidence of ovarian torsion. There is debris within the endometrium which is consistent with recent delivery and likely secondary to blood products but not retained products of conception. Clinically, patient is not hemorrhaging from her vagina. This is likely her spotting and vaginal bleeding resolving from her vaginal . On reevaluation, vital signs remained within except for limits. We discussed her workup. I did offer a CT abdomen and pelvis at this time for more definitive evaluation. She discussed with her and declined. I believe this is reasonable and she has no pain or tenderness. She is asymptomatic. She can follow-up with her PCP or ANESTHESIA DIRECTOR within the next few days. I did recommend she continue the antibiotics that her physician prescribed her. She was in agreement this plan. She'll be discharged home at this time. Strict return precautions were discussed. I instructed the patient to follow up with their PCP in the next 1-3 days. I explained that the patient should return to the emergency department if they experience any worsening symptoms. Strict return precautions were discussed with the patient. The patient expressed understanding of these instructions. I answered all questions that the patient had. The patient was discharged home in good condition with their prescriptions and follow up information. Was pt. sent in by a medical professional or institution (, RADHA, SHIP MANAGER, urgent care, hospital, or long-term...) When possible be specific @ -No Did you speak to anyone other than the patient for history (EMS, parent, family, police, friend...)? What history was obtained from this source @ -Yes, patient's was able to provide some history regarding the patient's symptoms. Did you review nursing and triage notes (agree or disagree)? Why? @ -I reviewed and agree with nursing and triage notes Were old charts reviewed (outside hosp., previous admission, EMS record, old EKG, old radiological studies, urgent care reports/EKG's, long-term records)? Report findings @ -No old charts were reviewed Differential Diagnosis (chest pain, altered mental status, abdominal pain women, abdominal pain men, vaginal bleeding, weakness, fever, dyspnea, syncope, headache, dizziness, GI bleed, back pain, seizure, CVA, palpatations, mental health)? @ -Differential Abdominal Pain Women: Appendicitis, Cholecystitis, diverticulosis, ischemic bowel, pancreatitis, hepatitis, UTI, gastroenteritis, AAA, incarcerated hernia, bowel obstruction, constipation, inflammatory bowel, hepatitis, peptic ulcer disease, splenic infarction, perforated viscus, vulvitis, ovarian torsion, PID, kidney stone, placenta abruption, this is not meant to be an all-inclusive list EKG interpreted by me (3pts min.). @ -Not done X-rays interpreted by me (1pt min.). @ -KUB revealed no acute intra-abdominal process, no kidney stone CT interpreted by me (1pt min.). @ -None done U/S interpreted by me (1pt. min.). @ -No evidence of ovarian torsion. There appears to be some blood debris in the uterus is does not appear to be products of conception per radiology. Renal and gallbladder ultrasounds revealed no gallstones or nephrolithiasis. No hydronephrosis. No evidence of nephrolithiasis. What testing was considered but not performed or refused? (CT, X-rays, U/S, labs)? Why? @ -CT. Patient declined at this time. What meds were considered but not given or refused? Why? @ -None Did you discuss the management of the patient with other professionals (pro fessionals i.e. , PA, SHIP MANAGER, lab, RT, psych nurse, social media community manager, nocturnist, teacher, aerospace engineer officer armament, case advocate)? Give summary @ -No Was smoking cessation discussed for >3mins.? @ -No Was critical care preformed (if so, how long)? @ -No Were there social determinants of health that impacted care today? How? (Homelessness, low income, unemployed, alcoholism, drug addiction, transporta tion, low edu. Level, literacy, decrease access to med. care, long term, rehab)? @ -No Was there de-escalation of care discussed even if they declined (Discuss DNR or withdrawal of care, Hospice)? DNR status @ -No What co-morbidities impacted this encounter? (DM, HTN, Smoking, COPD, CAD, Cancer, CVA, ARF, Chemo, Hep., AIDS, mental health diagnosis, sleep apnea, morbid obesity)? @ -None Was patient admitted / discharged? Hospital course, mention meds given and route, prescriptions, significant lab abnormalities, going to OR and other pertinent info. @ -Patient was discharged home. See above for hospital course. Undiagnosed new problem with uncertain prognosis? @ -No Drug Therapy requiring intensive monitoring for toxicity (Heparin, Nitro, Insulin, Cardizem)? @ -No Were any procedures done? @ -No Diagnosis/symptom? @ -UTI Acute, or Chronic, or Acute on Chronic? @ -Acute Uncomplicated (without systemic symptoms) or Complicated (systemic symptoms)? @ -Uncomplicated Side effects of treatment? @ -No Exacerbation, Progression, or Severe Exacerbation? @ -No Poses a threat to life or bodily function? How? (Chest pain, [place], VA, pneumonia, PE, COPD, DKA, ARF, appy, cholecystitis, CVA, Diverticulitis, Homicidal, Suicidal, threat to staff... and all critical care pts) @ -Yes If untreated, can result in significant morbidity and mortality. Patient is already on antibiotics. Diagnosis/symptom? @ -Abdominal pain of unknown etiology Acute, or Chronic, or Acute on Chronic? @ -Acute Uncomplicated (without systemic symptoms) or Complicated (systemic symptoms)? @ -Uncomplicated Side effects of treatment? @ -none Exacerbation, Progression, or Severe Exacerbation] @ -no Poses a threat to life or bodily function? @ -no - Lab Data Result diagrams: 06/29/22 08:31 06/29/22 08:31 Lab Results 06/29/22 06/29/22 06/29/22 Range/Units 08:31 08:31 08:31 WBC 8.4 (3.8-10.6) k/uL RBC 4.36 (3.80-5.40) m/uL Hgb 12.8 (11.4-16.0) gm/dL Hct 36.7 (34.0-46.0) % MCV 84.2 (80.0-100.0) fL MCH 29.5 (25.0-35.0) pg MCHC 35.0 (31.0-37.0) g/dL RDW 11.5 (11.5-15.5) % Plt Count 222 (150-450) k/uL MPV 6.7 Neutrophils % 81 % Lymphocytes % 11 % Monocytes % 6 % Eosinophils % 0 % Basophils % 0 % Neutrophils # 6.8 (1.3-7.7) k/uL Lymphocytes # 0.9 L (1.0-4.8) k/uL Monocytes # 0.5 (0-1.0) k/uL Eosinophils # 0.0 (0-0.7) k/uL Basophils # 0.0 (0-0.2) k/uL PT 11.7 (9.0-12.0) sec INR 1.1 (<1.2) APTT 27.9 (22.0-30.0) sec Sodium (137-145) mmol/L Potassium (3.5-5.1) mmol/L Chloride (98-107) mmol/L Carbon Dioxide (22-30) mmol/L Anion Gap mmol/L BUN (7-17) mg/dL Creatinine (0.52-1.04) mg/dL Est GFR (CKD-EPI)AfAm (>60 ml/min/1.73 sqM) Est GFR (CKD-EPI)NonAf (>60 ml/min/1.73 sqM) Glucose (74-99) mg/dL Plasma Lactic Acid Ashok (0.7-2.0) mmol/L Calcium (8.4-10.2) mg/dL Total Bilirubin (0.2-1.3) mg/dL AST (14-36) U/L ALT (4-34) U/L Alkaline Phosphatase (38-126) U/L Total Protein (6.3-8.2) g/dL Albumin (3.5-5.0) g/dL Amylase (30-110) U/L Lipase (23-300) U/L Urine Color Yellow Urine Appearance Cloudy H (Clear) Urine pH 5.5 (5.0-8.0) Ur Specific [place] 1.015 (1.001-1.035) Urine Protein Trace H (Negative) Urine Glucose (UA) Negative (Negative) Urine Ketones Trace H (Negative) Urine Blood Moderate H (Negative) Urine Nitrite Negative (Negative) Urine Bilirubin Negative (Negative) Urine Urobilinogen <2.0 (<2.0) mg/dL Ur Leukocyte Esterase Large H (Negative) Urine RBC 14 H (0-5) /hpf Urine WBC 149 H (0-5) /hpf Urine WBC Clumps Few H (None) /hpf Ur Squamous Epith Cells <1 (0-4) /hpf Urine Bacteria Occasional H (None) /hpf Urine Mucus Rare H (None) /hpf Blood Type Blood Type Recheck Bld Type Recheck Status Antibody Screen Spec Expiration Date 06/29/22 06/29/22 06/29/22 Range/Units 08:31 08:31 08:31 WBC (3.8-10.6) k/uL RBC (3.80-5.40) m/uL Hgb (11.4-16.0) gm/dL Hct (34.0-46.0) % MCV (80.0-100.0) fL MCH (25.0-35.0) pg MCHC (31.0-37.0) g/dL RDW (11.5-15.5) % Plt Count (150-450) k/uL MPV Neutrophils % % Lymphocytes % % Monocytes % % Eosinophils % % Basophils % % Neutrophils # (1.3-7.7) k/uL Lymphocytes # (1.0-4.8) k/uL Monocytes # (0-1.0) k/uL Eosinophils # (0-0.7) k/uL Basophils # (0-0.2) k/uL PT (9.0-12.0) sec INR (<1.2) APTT (22.0-30.0) sec Sodium 137 (137-145) mmol/L Potassium 3.5 (3.5-5.1) mmol/L Chloride 104 (98-107) mmol/L Carbon Dioxide 28 (22-30) mmol/L Anion Gap 5 mmol/L BUN 9 (7-17) mg/dL Creatinine 0.74 (0.52-1.04) mg/dL Est GFR (CKD-EPI)AfAm >90 (>60 ml/min/1.73 sqM) Est GFR (CKD-EPI)NonAf >90 (>60 ml/min/1.73 sqM) Glucose 111 H (74-99) mg/dL Plasma Lactic Acid Ashok 0.8 (0.7-2.0) mmol/L Calcium 8.3 L (8.4-10.2) mg/dL Total Bilirubin 0.5 (0.2-1.3) mg/dL AST 18 (14-36) U/L ALT 18 (4-34) U/L Alkaline Phosphatase 98 (38-126) U/L Total Protein 6.4 (6.3-8.2) g/dL Albumin 3.7 (3.5-5.0) g/dL Amylase 50 (30-110) U/L Lipase 38 (23-300) U/L Urine Color Urine Appearance (Clear) Urine pH (5.0-8.0) Ur Specific [place] (1.001-1.035) Urine Protein (Negative) Urine Glucose (UA) (Negative) Urine Ketones (Negative) Urine Blood (Negative) Urine Nitrite (Negative) Urine Bilirubin (Negative) Urine Urobilinogen (<2.0) mg/dL Ur Leukocyte Esterase (Negative) Urine RBC (0-5) /hpf Urine WBC (0-5) /hpf Urine WBC Clumps (None) /hpf Ur Squamous Epith Cells (0-4) /hpf Urine Bacteria (None) /hpf Urine Mucus (None) /hpf Blood Type O Positive Blood Type Recheck O Pos Bld Type Recheck Status No Antibody Screen NEGATIVE Spec Expiration Date 07/02/2022 - 2330 Disposition Clinical Impression: Abdominal pain of unknown etiology, UTI (urinary tract infection) Disposition: HOME SELF-CARE Condition: Good Instructions (If sedation given, give patient instructions): Urinary Tract Infection in Women (DC), Abdominal Pain (ED) Is patient prescribed a controlled substance at d/c from ED?: No Referrals: None,Stated [Primary Care Provider] - 1-2 days Time of Disposition: 10:10
[2022-06-29 09:00] LABS: ALT 18 U/L (4-34); AST 18 U/L (14-36); African American GFR (CKD) >90 (>60 ml/min/1.73 sqM); Albumin 3.7 g/dL (3.5-5.0); Alkaline Phosphatase 98 U/L (38-126); Amylase 50 U/L (30-110); Anion Gap 5 mmol/L; Blood Urea Nitrogen 9 mg/dL (7-17); Calcium 8.3 mg/dL (8.4-10.2); Carbon Dioxide 28 mmol/L (22-30); Chloride 104 mmol/L (98-107); Glucose 111 mg/dL (74-99); INR 1.1 (<1.2); Lipase 38 U/L (23-300); Non-African American GFR(CKD) >90 (>60 ml/min/1.73 sqM); Partial Thromboplastin Time 27.9 sec (22.0-30.0); Potassium 3.5 mmol/L (3.5-5.1); Prothrombin Time 11.7 sec (9.0-12.0); Sodium 137 mmol/L (137-145); Total Bilirubin 0.5 mg/dL (0.2-1.3); Total Protein 6.4 g/dL (6.3-8.2)
[2022-06-29 09:08] LABS: Appearance,Urine Cloudy (Clear); Bacteria,Urine Occasional /hpf; Basophils % (A) 0 %; Bilirubin,Urine Negative (Negative); Blood,Urine Moderate (Negative); Color,Urine Yellow; Eosinophils % (A) 0 %; Glucose,Urine (UA) Negative (Negative); HCT 36.7 % (34.0-46.0); HGB 12.8 gm/dL (11.4-16.0); Ketones,Urine Trace (Negative); Leukocyte Esterase,Urine Large (Negative); Lymphocytes # (A) 0.9 k/uL (1.0-4.8); Lymphocytes % (A) 11 %; MCH 29.5 pg (25.0-35.0); MCV 84.2 fL (80.0-100.0); Mean Platelet Volume 6.7; Monocytes # (A) 0.5 k/uL (0-1.0); Monocytes % (A) 6 %; Mucus,Urine Rare /hpf; Neutrophils # (A) 6.8 k/uL (1.3-7.7); Neutrophils % (A) 81 %; Nitrite,Urine Negative (Negative); PH, Urine 5.5 (5.0-8.0); Platelet Count 222 k/uL (150-450); Protein,Urine Trace (Negative); RBC 4.36 m/uL (3.80-5.40); RBC,Urine 14 /hpf (0-5); RDW 11.5 % (11.5-15.5); Specific Gravity,Urine 1.015 (1.001-1.035); Squamous Epithelial Cell,Urine <1 /hpf (0-4); Urobilinogen,Urine <2.0 mg/dL (<2.0); WBC 8.4 k/uL (3.8-10.6); WBC,Urine 149 /hpf (0-5)
[2022-06-29 09:36] VITALS: PULSE 92; RESP 18
--- NOTE | 2022-06-29 09:40 | US ---
EXAMINATION TYPE: US abdomen comp/pelvis limited DATE OF EXAM: 06/29/2022 COMPARISON: NONE CLINICAL HISTORY: rt flank/RUQ pain.. rt side pain EXAM MEASUREMENTS: Liver Length: 17.6 cm Gallbladder Wall: .3 cm CBD: .3 cm Spleen: 12.1 cm Right Kidney: 11.80 x 4.2 x 5.8 cm Left Kidney: 9.4 x 3.6 x 6.2 cm Pancreas: wnl Liver: wnl Gallbladder: wnl CBD: wnl Spleen: wnl Right Kidney: wnl Left Kidney: wnl Upper IVC: wnl Abd Aorta: wnl Bladder: wnl Bilateral Jets Seen Yes IMPRESSION: No evidence for acute process.
--- NOTE | 2022-06-29 09:45 | US ---
EXAMINATION TYPE: US transvaginal DATE OF EXAM: 06/29/2022 COMPARISON: NONE CLINICAL HISTORY: eval for torsion, retained products. pain Rt side had a baby x 3weeks ago vaginal b irth. TECHNIQUE: Transvaginal (TV). EXAM MEASUREMENTS: Uterus: 8.5 x 5.3 x 7.2 cm Endometrial Stripe: 1.2 cm Right Ovary: 3.8 x 2.0 x 2.4 cm 1. Uterus: Anteverted no evidence of retained products. 2. Endometrium: wnl 3. Right Ovary: wnl 4. Left Ovary: Obscured by overlying bowel gas Spectral, color and waveform doppler imaging shows good arterial and venous flow within the right o vary; there is no evidence for ovarian torsion. 5. Bilateral Adnexa: wnl 6. Posterior cul-de-sac: Trace free fluid in the pelvis. IMPRESSION: 1. Hypoechoic debris within the endometrium which is nonspecific and likely represents blood product s. No evidence of increased vascularity to suggest retained products of conception. 2. The right ovary demonstrates arterial and spectral waveforms with poor visualization of venous sp ectral waveforms which could be due to technique. 3. Trace free fluid in the pelvis. 4. Left ovary is obscured by bowel gas.
--- NOTE | 2022-06-29 09:58 | XR ---
EXAMINATION TYPE: XR KUB DATE OF EXAM: 06/29/2022 9:33 AM INDICATION: Patient age:Female; 37 years old; Reason for study: abdominal pain; COMPARISON: None. TECHNIQUE: One radiographic view of the abdomen was obtained. FINDINGS: The bowel gas pattern is nonspecific without dilated loops of small or large bowel. There i s no evidence for organomegaly or pneumoperitoneum. The osseous structures are intact. No abnormal calcifications are present. Fecal material and gas are demonstrated throughout the colon and rectum. IMPRESSION: Nonspecific bowel gas pattern without radiographic evidence for acute process.
[2022-06-29 10:30] VITALS: BP 134/81
== END 2022-06-29 10:33 | disposition home or self-care (01) ==
LOC: EC 07:36
DX: O99.891 Other specified diseases and conditions complicating pregnancy (principal); O23.41 Unspecified infection of urinary tract in pregnancy, first trimester; R10.9 Unspecified abdominal pain; N39.0 Urinary tract infection, site not specified
CPT/HCPCS: 99284 ×2; 96374 ×2; 96375 ×2; 96361 ×2; 36415; 86900; 86901; 80053; 82150; 83605; 83690; 85025; 85610; 85730; 86850; 81001; 87086; 74018; 93976; 76700; 76857; 76830; J2405; J1885

== ENCOUNTER → 2024-03-30 | Outpatient (CLI) | payer BC ==
[2024-03-30 15:37] LABS: Basophils # (A) 0.05 X 10*3/uL (0.00-0.10); Basophils % (A) 1.2 %; Eosinophils # (A) 0.08 X 10*3/uL (0.04-0.35); Eosinophils % (A) 1.9 %; HCT 39.5 % (37.2-46.3); HGB 13.1 g/dL (12.0-15.0); Lymphocytes # (A) 1.93 X 10*3/uL (0.90-5.00); Lymphocytes % (A) 44.9 %; MCH 28.4 pg (27.0-32.0); MCHC 33.2 g/dL (32.0-37.0); MCV 85.7 FL (80.0-97.0); Monocytes # (A) 0.35 X 10*3/uL (0.20-1.00); Monocytes % (A) 8.1 %; NRBC Per 100 WBC 0 X 10*3/uL (0.00-0.01); Neutrophils # (A) 1.88 X 10*3/uL (1.80-7.70); Neutrophils % (A) 43.7 %; Platelet Count 283 X 10*3/uL (140-440); RBC 4.61 X 10*6/uL (4.10-5.20); RDW 12.1 % (11.5-14.5)
== END | disposition home or self-care (01) ==
LOC: LABPAT 10:10
PROVIDERS: ATTEND Obstetrics & Gynecology Obstetrics
DX: Z01.812 Encounter for preprocedural laboratory examination (principal)
CPT/HCPCS: 85025; 86850; 86900; 86901

== ENCOUNTER → 2024-03-31 | Day surgery (SDC) | payer BC ==
[~2024-03-31] MED LIST: HYDROmorphone 0.5 MG/0.5 ML SYRINGE IVP PRN; KETOROLAC 15 MG/ML 1 ML VIAL ONE; LIDOCAINE 1% INJ 10MG/ML (20 ML MDV) ONE; MIDAZOLAM 2 MG/2 ML VIAL ONE; PROPOFOL 10 MG/ML 20 ML VIAL IV ONE; Pre Op ABX Message 1 EACH MISC MISCELLANE ONE; fentaNYL (PF) 50 MCG/ML 2 ML AMP ONE
[2024-03-31] MEDS: LACTATED RINGERS 1,000 ML IV ONE (10:34)
[2024-03-31] MEDS: DEXAMETHASONE SOD PHOSPHATE 4 MG/ML 1 ML VIAL IV ONE (10:56)
[2024-03-31] MEDS: ONDANSETRON 4 MG/2 ML VIAL IVP ONE (10:57)
[2024-03-31] MEDS: LACTATED RINGERS 1,000 ML IV SCH (11:03)
--- NOTE | 2024-03-31 11:54 | P.OP ---
Date of Procedure: 03/31/24 Preoperative Diagnosis: Blighted ovum Postoperative Diagnosis: Same Procedure(s) Performed: Suction dilation and curettage Anesthesia: MAC Surgeon: Fatmata Yi Estimated Blood Loss (ml): 2 IV fluids (ml): 400 Urine output (ml): 50 Pathology: other (Products of conception) Condition: stable Disposition: PACU Indications for Procedure: Blighted ovum Operative Findings: Normal uterine size, moderate amount of products of conception appreciated Description of Procedure: Patient was taken back to the operating room where general anesthesia was obtained without difficulty by the anesthesia department. She is prepped and draped in the normal sterile fashion the dorsolithotomy position. A right upper catheter was used to drain the bladder of clear yellow urine. A weighted speculum placed in posterior vaginal vault the antilipid the cervix was visualized and grasped with a single-tooth tenaculum. The cervix was then dilated serially. An 8 curved suction curette was then placed into the cervix toward the fundus. Suction was activated and a moderate amount of products of conception were removed after 2 passes. A gentle sharp curettage was performed until the uterus was noted to be gritty in all 4 quadrants. Suction cup was placed again once again with minimal bleeding appreciated. All instruments were removed from the patient's vaginal vault single-tooth tenaculum taken off of the antilipid the cervix and hemostasis was appreciated. All counts were correct x 2. Patient tolerated procedure well and was taken the recovery awake in stable condition.
[2024-03-31 11:56] VITALS: TEMP 97.4
[2024-03-31 13:30] VITALS: RESP 14
[2024-03-31 13:46] VITALS: BP 101/62; PULSE 65
== END ==
LOC: OR 10:00
PROVIDERS: ATTEND Obstetrics & Gynecology Obstetrics
DX: O02.0 Blighted ovum and nonhydatidiform mole (principal)
CPT/HCPCS: 88305

== ENCOUNTER 2024-11-27 09:17 | Emergency (ER) | payer BC ==
[2024-11-27 09:33] VITALS: TEMP 98.1
--- NOTE | 2024-11-27 10:59 | ED ---
General Adult HPI - General Chief complaint: Extremity Problem,Nontraumatic Stated complaint: R Leg Pain Time Seen by Provider: 11/27/24 09:37 Source: patient, RN notes reviewed Mode of arrival: ambulatory Limitations: no limitations - History of Present Illness Initial comments: 39-year-old female at 26 weeks gestation presenting to the emergency department with complaints of right lower extremity pain. Patient states that when she woke up this morning she had a tightness in her right leg located behind her knee that radiate up into her thigh where she stated it felt like a bruise. Patient was having difficulty bearing weight on the leg and she called her doctor who recommended she report to the emergency department to rule out a blood clot. Patient states that since she has been in the emergency room with her leg elevated the pain has greatly improved. She denies history of DVT or PE, recent prolonged travel, recent surgeries, chest pain or difficulty in breathing. - Related Data Home Medications Medication Instructions Recorded Confirmed No Known Home Medications 05/29/21 03/31/24 Allergies Allergy/AdvReac Type Severity Reaction Status Date / Time No Known Allergies Allergy Verified 11/27/24 09:33 Review of Systems ROS Statement: Those systems with pertinent positive or pertinent negative responses have been documented in the HPI. ROS Other: All systems not noted in ROS Statement are negative. Past Medical History Past Medical History: No Reported History Additional Past Medical History / Comment(s): placental abruption 2016 at 35 wks History of Any Multi-Drug Resistant Organisms: None Reported Past Surgical History: No Surgical Hx Reported Additional Past Surgical History / Comment(s): oral surgery Past Anesthesia/Blood Transfusion Reactions: No Reported Reaction Past Psychological History: No Psychological Hx Reported Smoking Status: Never smoker Past Alcohol Use History: None Reported Past Drug Use History: None Reported - Past Family History Mother Family Medical History: Cancer Father Family Medical History: Cancer General Exam Limitations: no limitations General appearance: alert, in no apparent distress Neck exam: Present: normal inspection. Absent: tenderness, meningismus, lymphadenopathy Respiratory exam: Present: normal lung sounds bilaterally. Absent: respiratory distress, wheezes, rales, rhonchi, stridor Cardiovascular Exam: Present: regular rate, normal rhythm, normal heart sounds. Absent: systolic murmur, diastolic murmur, rubs, gallop, clicks GI/Abdominal exam: Present: soft, normal bowel sounds. Absent: distended, tenderness, guarding, rebound, rigid Right Lower Leg exam: Present: tenderness. Absent: swelling, deformity, erythema, palpable cord, Homans' sign Back exam: Present: normal inspection Course Vital Signs 11/27/24 11/27/24 11/27/24 09:30 11:02 11:25 Temperature 98.1 F Pulse Rate 110 H 104 H Respiratory 20 16 15 Rate Blood Pressure 124/84 114/71 O2 Sat by Pulse 99 100 Oximetry 11/27/24 12:22 Temperature Pulse Rate 88 Respiratory 19 Rate Blood Pressure 106/63 O2 Sat by Pulse 97 Oximetry Medical Decision Making - Medical Decision Making Was pt. sent in by a medical professional or institution (, PA, [employer], urgent care, hospital, or care home...) When possible be specific @ -Advised her primary care provider to report to emergency department to evaluate for blood clot. Did you speak to anyone other than the patient for history (EMS, parent, family, police, friend...)? What history was obtained from this source @ -No Did you review nursing and triage notes (agree or disagree)? Why? @ -I reviewed and agree with nursing and triage notes Were old charts reviewed (outside hosp., previous admission, EMS record, old EKG, old radiological studies, urgent care reports/EKG's, care home records)? Report findings @ -No old charts were reviewed Differential Diagnosis (chest pain, altered mental status, abdominal pain women, abdominal pain men, vaginal bleeding, weakness, fever, dyspnea, syncope, headache, dizziness, GI bleed, back pain, seizure, CVA, palpatations, mental health, musculoskeletal)? @ -Muscle sprain, DVT, superficial thrombophlebitis, varicose vein, list is not all inclusive EKG interpreted by me (3pts min.). @ -None X-rays interpreted by me (1pt min.). @ -None done CT interpreted by me (1pt min.). @ -None done U/S interpreted by me (1pt. min.). @ -Ultrasound of the right lower extremity no evidence of DVT What testing was considered but not performed or refused? (CT, X-rays, U/S, labs)? Why? @ -None What meds were considered but not given or refused? Why? @ -None Did you discuss the management of the patient with other professionals (kavitha silveira i.e. , PA, [employer], lab, RT, psych nurse, social media marketing specialist, director of web marketing, teacher, certification officer, field case manager)? Give summary @ -No Was smoking cessation discussed for >3mins.? @ -No Was critical care preformed (if so, how long)? @ -No Were there social determinants of health that impacted care today? How? (Homelessness, low income, unemployed, alcoholism, drug addiction, transportation, low edu. Level, literacy, decrease access to med. care, longterm, rehab)? @ -No Was there de-escalation of care discussed even if they declined (Discuss DNR or withdrawal of care, Hospice)? DNR status @ -No What co-morbidities impacted this encounter? (DM, HTN, Smoking, COPD, CAD, Cancer, CVA, ARF, Chemo, Hep., AIDS, mental health diagnosis, sleep apnea, morbid obesity)? @ -None Was patient admitted / discharged? Hospital course, mention meds given and route, prescriptions, significant lab abnormalities, going to OR and other pertinent info. @ -Discharge. 39 female presenting with pain to the right leg. On evaluation patient's right lower extremity is warm to the touch, pedal pulses 2+, good capillary refill and full range of motion. Negative Homans' sign. Ultrasound of the lower extremity no evidence for DVT. Patient instructed to continue to wear compression stockings follow-up as scheduled. Case discussed with my attending Dr. Conklin Undiagnosed new problem with uncertain prognosis? @ -No Drug Therapy requiring intensive monitoring for toxicity (Heparin, Nitro, Insulin, Cardizem)? @ -No Were any procedures done? @ -No Diagnosis/symptom? @ -Leg pain Acute, or Chronic, or Acute on Chronic? @ -Acute Uncomplicated (without systemic symptoms) or Complicated (systemic symptoms)? @ -uncomplicated Side effects of treatment? @ -No Exacerbation, Progression, or Severe Exacerbation? @ -No Poses a threat to life or bodily function? How? (Chest pain, [place], [place], pneumonia, PE, COPD, DKA, ARF, appy, cholecystitis, CVA, Diverticulitis, Homicidal, Suicidal, threat to staff... and all critical care pts) @ -No Disposition Clinical Impression: Right leg pain, Myalgia Disposition: HOME SELF-CARE Condition: Stable Instructions (If sedation given, give patient instructions): Leg Pain (ED) Additional Instructions: Please return to the Emergency Department if symptoms worsen or any other concerns. Is patient prescribed a controlled substance at d/c from ED?: No Referrals: Anthony Asencio Jr, DO [Primary Care Provider] - 1-2 days Time of Disposition: 12:06
--- NOTE | 2024-11-27 11:46 | US ---
EXAMINATION TYPE: US venous doppler duplex LE RT DATE OF EXAM: 11/27/2024 11:12 AM COMPARISON: NONE CLINICAL INDICATION: Female, 39 years old with history of pain, RO DVT; TECHNIQUE: The lower extremity deep venous system is examined utilizing real time linear array sonog iliana with graded compression, color doppler sonography, and spectral doppler. SIDE PERFORMED: Right FINDINGS: VESSELS IMAGED: Common Femoral Vein Deep Femoral Vein Greater Saphenous Vein * Femoral Vein Popliteal Vein Small Saphenous Vein * Proximal Calf Veins (* superficial vessels) Right Leg: Appears negative for DVT IMPRESSION: No ultrasound evidence for deep venous thrombosis. [facility], , 11/27/2024 11:44 AM
[2024-11-27 12:26] VITALS: BP 106/63; PULSE 88; RESP 19
== END 2024-11-27 12:26 | disposition home or self-care (01) ==
LOC: EC 09:17
DX: O26.899 Other specified pregnancy related conditions, unspecified trimester (principal); M25.561 Pain in right knee; M79.18 Myalgia, other site; Z3A.26 26 weeks gestation of pregnancy
CPT/HCPCS: 99283